=== PATIENT | female | born 1960 | race Caucasian/White ===

== ENCOUNTER 2018-02-25 09:10 | Emergency (ER) | payer MEDICARE, OTHER ==
[2018-02-25 09:32] VITALS: RESP 20; O2SAT 97; BMI 31.7
--- NOTE | 2018-02-25 09:38 | C.PDOC ---
History Of Present Illness 57 y/o female,w/PMhx of myelofibrosis and HTN, presents to the ER complaining of atraumatic left shoulder pain x 1 day. Patient states that she had gradual onset of left shoulder pain that is worse with movement. She is unable to move left shoulder or lift arm secondary to pain. Took Motrin 800 mg yesterday without relief. Pt has never experienced this type of pain before. Denies trauma/injury, fever, chills, CP, SOB, diaphoresis, palpitations, weakness, numbness, parasthesias, or any other associated symptoms. Time Seen by Provider: 02/25/18 09:36 Chief Complaint (Nursing): Upper Extremity Problem/Injury History Per: Patient History/Exam Limitations: no limitations Onset/Duration Of Symptoms: Days Current Symptoms Are (Timing): Still Present Severity: Moderate Past Medical History Reviewed: Historical Data, Nursing Documentation, Vital Signs Vital Signs: Last Vital Signs Temp 97.9 F 02/25/18 09:26 Pulse 93 H 02/25/18 09:26 Resp 20 02/25/18 09:26 BP 124/74 02/25/18 09:26 Pulse Ox 97 02/25/18 09:26 - Medical History PMH: HTN Denies: Chronic Kidney Disease Surgical History: Tonsillectomy - [facility] REMOV INTRALUM EAR FB (08/30/12) Family History: States: No Known Family Hx - Social History Hx Tobacco Use: No Hx Alcohol Use: No Hx Substance Use: No - Immunization History Hx Tetanus Toxoid Vaccination: No Hx Influenza Vaccination: Yes Hx Pneumococcal Vaccination: Yes Review Of Systems Except As Marked, All Systems Reviewed And Found Negative. Constitutional: Negative for: Fever, Chills Cardiovascular: Negative for: Chest Pain, Palpitations, Light Headedness Respiratory: Negative for: Cough, Shortness of Breath Gastrointestinal: Negative for: Nausea, Vomiting, Abdominal Pain Musculoskeletal: Positive for: Shoulder Pain (left shoulder pain) Skin: Negative for: Rash, Bruising Neurological: Negative for: Weakness, Numbness, Dizziness Physical Exam - Physical Exam Appears: Well, Non-toxic, No Acute Distress Skin: Normal Color, Warm, Dry Head: Atraumatic, Normacephalic Eye(s): bilateral: Normal Inspection, PERRL, EOMI Nose: Normal Oral Mucosa: Moist Neck: Normal, Normal ROM, No Midline Cervical Tenderness, No Paracervical Tenderness, Supple Chest: Symmetrical Cardiovascular: Rhythm Regular Respiratory: Normal Breath Sounds, No Rales, No Rhonchi, No Wheezing Gastrointestinal/Abdominal: Normal Exam, Bowel Sounds (normal), Soft, No Tenderness Back: Normal Inspection, No CVA Tenderness, No Vertebral Tenderness, No Decreased ROM Extremity: No Normal ROM (decreased at left shoulder secondary to pain; left elbow and wrist normal), Tenderness (tenderness to palpation over posterior aspect of left shoulder), Capillary Refill (<2s), No Deformity, No Swelling Extremity: Left: Limited ROM To Joint (shoulder), Right: Normal ROM, Bilateral: Atraumatic, No Pedal Edema, Normal Color And Temperature Pulses: Left Radial: Normal, Right Radial: Normal Neurological/Psych: Oriented x3, Normal Speech, Normal Motor, Normal Sensation Gait: Steady ED Course And Treatment O2 Sat by Pulse Oximetry: 97 (RA) Pulse Ox Interpretation: Normal - Other Rad X-Ray-Left Shoulder X-Ray: Viewed By Me, Read By Radiologist Interpretation: FINDINGS: BONES: Normal. No fracture. JOINTS: Glenohumeral and acromioclavicular joint arthrosis. SOFT TISSUES: Multiple calcific and ossific densities the largest approximately 9 to 10 mm in size is present bordering the acromion on the transscapular Y-view. A subacromial subdeltoid bursal calcific bursitis, loose body in this bursa and/or large rotator cuff calcific tendinopathy focus are differential considerations. OTHER FINDINGS: None. IMPRESSION: Multiple calcific and ossific densities the largest approximately 9 to 10 mm in size is present bordering the acromion on the transscapular Y-view. A subacromial subdeltoid bursal calcific bursitis, loose body in this bursa and/or large rotator cuff calcific tendinopathy focus are differential considerations. No destructive lesion. Arthrosis. Medical Decision Making Medical Decision Making: Plan: --Toradol IM --Flexeril PO --ECG --Troponin --X-Ray-Left Shoulder EKG: rate 85; NSR; normal intervals; no STEMI or other signs of ischemia Troponin: negative Pt reports significantly decreased pain after medication, has increased ROM of left shoulder. Pt placed in sling and recommended to followup with orthopedics within the next 2 days. Plan of care discussed with patient, and strict instructions given regarding prescriptions, importance of follow up, and signs to return to Emergency Department, to include worsening pain, chest pain, SOB, palpitations, or any other new/worsening symptoms. Patient verbalizes understanding of discussion. Patient A&Ox3, ambulating with steady gait, stable for discharge home. Disposition - Disposition Referrals: Roger Diaz III, MD [Staff Provider] - Disposition: HOME/ ROUTINE Disposition Time: 12:00 Condition: IMPROVED Additional Instructions: Naproxen daily as needed for pain Keep arm in sling until followup with orthopedics Followup with orthopedics within 2 days Followup with primary doctor within 2 days Return to ER for any new/worsening symptoms Prescriptions: Naproxen [Naprosyn] 500 mg PO DAILY PRN #14 tablet PRN Reason: Pain, Moderate (4-7) Instructions: Shoulder Instability (DC), Rotator Cuff Tendinitis Stretching Exercises Forms: General Discharge Instructions, [facility] (I[place]ic), Work Excuse - Clinical Impression Clinical Impression: Tendinopathy, Shoulder pain - PA / [employer] / Resident Statement MD/DO has reviewed & agrees with the documentation as recorded. - Scribe Statement The provider has reviewed the documentation as recorded by the Pam Butler Provider Attestation All medical record entries made by the Pam were at my direction and personally dictated by me. I have reviewed the chart and agree that the record accurately reflects my personal performance of the history, physical exam, medical decision making, and the department course for this patient. I have also personally directed, reviewed, and agree with the discharge instructions and disposition.
--- NOTE | 2018-02-25 11:22 | RAD ---
Date of service: 02/25/2018 PROCEDURE: Radiographs of the Left Shoulder HISTORY: shoulder pain COMPARISON: No prior. FINDINGS: BONES: Normal. No fracture. JOINTS: Glenohumeral and acromioclavicular joint arthrosis. SOFT TISSUES: Multiple calcific and ossific densities the largest approximately 9 to 10 mm in size is present bordering the acromion on the transscapular Y-view. A subacromial subdeltoid bursal calcific bursitis, loose body in this bursa and/or large rotator cuff calcific tendinopathy focus are differential considerations. OTHER FINDINGS: None. IMPRESSION: Multiple calcific and ossific densities the largest approximately 9 to 10 mm in size is present bordering the acromion on the transscapular Y-view. A subacromial subdeltoid bursal calcific bursitis, loose body in this bursa and/or large rotator cuff calcific tendinopathy focus are differential considerations. No destructive lesion. Arthrosis.
[2018-02-25 11:58] VITALS: BP 121/77; PULSE 78; TEMP 97.5
--- NOTE | 2018-02-26 12:40 | CARD ---
APPROVED REPORT Date of service: 02/25/2018 EKG Measurement Heart [id number] <Conclusion> Normal sinus rhythm Possible Left atrial enlargement Borderline ECG
== END 2018-02-25 11:58 | disposition home or self-care (01) ==
LOC: C.ER 09:10
DX: M25.512 Pain in left shoulder (principal)
CPT/HCPCS: 73030; 84484; 93005; 96372; 99284; J1885